=== PATIENT | female | born 1960 | race Caucasian/White ===

== ENCOUNTER 2021-06-26 08:56 | Day surgery (SDC) | payer MEDICARE, BC ==
--- NOTE | 2021-06-26 08:25 | HP ---
DATE OF SURGERY: 06/26/2021 HISTORY OF PRESENT ILLNESS: The patient is a 61-year-old with history of polyps. Last colonoscopy five years or so ago. She is in need of follow up screening colonoscopy. No bloody stools. No change in bowel movements. No pain. Family history negative for colon cancer, negative for stomach cancer. She has some nausea and reflux. Given her increased reflux recently she is in need of follow up upper endoscopy as well. PAST MEDICAL HISTORY: Chronic lung disease followed by Dr. Jules Calero. Severe allergic asthma per the patient. PAST SURGICAL HISTORY: Three sections. Tonsillectomy. Neck surgery in the past. MEDICATIONS: Dupixent. ALLERGIES: MORPHINE. LATEX. FAMILY HISTORY: Lung cancer. Thyroid problems. Hypertension. Heart disease. Negative for colon cancer. Negative for stomach cancer. SOCIAL HISTORY: No smoking or alcohol abuse currently. REVIEW OF SYSTEMS: Fourteen systems reviewed. No chest pain or palpitations. Other systems negative or noncontributory as above and per preadmission questionnaire. PHYSICAL EXAMINATION: GENERAL: No acute distress. HEENT: Sclerae nonicteric. NECK: No JVD. CHEST: Breath sounds symmetrical, slightly decreased bilaterally consistent with chronic lung disease otherwise no current audible wheezes. CVS: Regular rate and rhythm. ABDOMEN: Soft, nontender. EXTREMITIES: Pertinent for left hand lesion of indeterminate behavior. NEURO: Alert, oriented, moving extremities symmetrically. RECTAL: Deferred timed to endoscopy exam. PSYCH: Appropriate mood and affect. IMPRESSION: 1) History of polyps, need follow up screening colonoscopy. 2) Increased reflux, need for upper endoscopy to evaluate for gastritis, esophagitis, peptic ulcer disease. PLAN: General risk of bleeding or infection, risk of bowel injury or perforation, risk of missed or nondiagnosis or incomplete exam possibly requiring barium swallow, barium enema, other studies or procedures. General risk of anesthesia or sedation, risk of bowel prep. Regarding her left hand enlarging lesion of indeterminate behavior, general risk of bleeding and infection, risk of aches, pains, burning or numbness, possibility if malignant with involved margins may require other procedures, She understands and agrees to the planned procedure, will proceed with EGD, colonoscopy as well as excisional biopsy of left hand lesion an outpatient.
[~2021-06-26 08:56] MED LIST: Lactated Ringers 1,000 ML IV ONE; XYLOCAINE 1% HCL 20 ML MDV ONE
[2021-06-26] MEDS ORDERED: CEFAZOLIN 2 GM-D5W BAG** 2 GM/50 ML ML IV ONE (10:14)
[2021-06-26] MEDS ORDERED: CEFAZOLIN 2 GM-D5W BAG** 2 GM/50 ML ML IV SCH (10:30)
[2021-06-26] MEDS ORDERED: Lactated Ringers 1,000 ML IV SCH (10:30)
[2021-06-26] MEDS ORDERED: DIPRIVAN 200 MG/20 ML IV ONE ×3 (11:18→11:48)
[2021-06-26] MEDS ORDERED: SUBLIMAZE 100 MCG/2 ML ONE (11:18)
[2021-06-26] MEDS ORDERED: Versed 2 MG/2 ML Injection ONE (11:18)
[2021-06-26 13:05] VITALS: BP 147/85; PULSE 65; O2SAT 98
--- NOTE | 2021-06-26 15:04 | OP ---
SURGERY DATE/TIME: 06/26/2021 1120 PREOPERATIVE DIAGNOSES: 1) Enlarging pigmented lesion indeterminate significance left hand. 2) Increased reflux, need for upper endoscopy to evaluate for gastritis, esophagitis or other etiology. 3) History of polyps, need for follow up screening colonoscopy. POSTOPERATIVE DIAGNOSES: 1) ASA Class II. 2) Minimal to mild gastritis. 3) Plus or minus very short segment early distal esophagitis versus normal variation of gastroesophageal junction. 4) Multiple colon polyps. 5) Few diverticula. 6) Fair bowel prep. 7) Colonoscopy withdrawal time 13 minutes. PROCEDURES: 1) Excisional biopsy left hand pigmented lesion indeterminate significance, path pending (approximately 1.5 cm with margin). 2) EGD with cold biopsy of antrum for Helicobacter pylori. 3) Cold biopsy distal esophagus to evaluate for early distal esophagitis versus normal variation of gastroesophageal junction. 4) Random cold biopsy mid esophagus to evaluate for eosinophilic esophagitis. 5) Colonoscopy to cecum with hot biopsy polypectomy removal small ascending colon polyp. 6) Hot biopsy polypectomy removal of two or three small early transverse colon polyps removed with hot biopsy forceps. 7) Hot snare polypectomy of a 3.5 mm nearly 4 mm polyp transverse colon removed with hot snare polypectomy. Good hemostasis noted. 8) Hot biopsy polypectomy sigmoid colon polyps one which was removed in piecemeal fashion. 9) Hot biopsy polypectomy small early rectal polyp versus hyperplastic lesion. SURGEON: Dr. Nicko Hines. ANESTHESIA: MAC. ESTIMATED BLOOD LOSS: Minimal. INDICATIONS: As noted above. Risks and benefits explained in detail and not limited to and consent obtained. DESCRIPTION OF PROCEDURE AND FINDINGS: The patient is taken to the operating room. MAC anesthesia introduced, prepped and draped in usual sterile fashion. After official time out and no disagreement with planned procedure, 1% lidocaine local was infiltrated around the hand lesion of indeterminate behavior and marking out spindle-shaped around the area ended up being approximately 1.5 cm with margins. Dissecting off the underlying subcutaneous tissue. The specimen is passed off for pathology. Good hemostasis noted with some pinpoint cautery. The wound was then closed in layers. The deep layers were closed with interrupted 3-0 Vicryl. Skin closed with interrupted 4-0 Prolene interrupted fashion. Sterile dressing applied. The patient tolerated the procedure well. Attention is then turned to upper endoscopy. After waiting for the endoscopy equipment to be available, bite block positioned. Video gastroscope easily passed down the esophagus through the patent pylorus to the third portion of the duodenum. Third, second, first portion of duodenum grossly unremarkable. Scope pulled back into the stomach. It did have some little scattered petechial hemorrhages with some minimal to mild gastritis. No evidence of any ulcers or masses. Cold biopsy taken. On retroflex the gastroesophageal junction snug against the scope. No signs of any significant hiatal hernia on endoscopic view. The scope pulled back gastroesophageal junction noted to be about 40 cm. There was just a little bit of inflammation in the gastroesophageal junction whether this was just normal variation versus early distal esophagitis cold biopsy taken to evaluate for further evaluation. Good hemostasis noted. The remainder of the esophagus no signs of any obvious mucosal lesions. Some random cold biopsies were made in the mid esophagus to evaluate for other etiology of her symptoms. Good hemostasis noted. The scope is withdrawn. Examination was then turned to the colonoscopy. Digital rectal exam did not reveal any rectal masses. Video colonoscope inserted and passed up through the tortuous sigmoid, descending, transverse and ascending colon around to the cecum this did have some minimal internal hemorrhoids. The scope was passed around with external pressure to the cecum. Appendiceal orifice and valve well visualized and photo documented. Prep overall was fair. A little bit of liquidy semisolid stool suction irrigated as clear as possible but slightly limited the exam for very small lesions. The scope is slowly and carefully withdrawn over the next 13 minutes. Small polyp was removed with hot biopsy forceps with brief bursts of cautery in the ascending colon. Scope pulled back around the transverse colon. Two to three small early polyps removed with hot biopsy forceps with brief bursts of cautery. Good hemostasis noted. There was a little bit bigger one removed with hot snare polypectomy that was about 3.5 to 4 mm in size removed with hot snare polypectomy and brief bursts of cautery and appeared to be removed in total. The scope carefully pulled back to sigmoid colon. There were small polyps removed with hot biopsy polypectomy with brief bursts of cautery. Good hemostasis noted. The scope then pulled back in the rectum. Small early polyp versus hyperplastic lesion removed with hot biopsy forceps with brief bursts of cautery. Good hemostasis noted. The patient tolerated the procedure well. There were no immediate complications. Likely given the multiple polyps, will see if the path ends up being benign. Likely would recommend considering two year follow up colonoscopy given multiple polyps. The patient tolerated the procedure well. There were no immediate complications. She did have three tiny diverticula. There was no family out in the waiting area when I finished the case.
== END 2021-06-26 13:10 | disposition home or self-care (01) ==
LOC: SDC 08:56 → EDSTATUS 14:02
PROVIDERS: ATTEND Surgery
DX: Z12.11 Encounter for screening for malignant neoplasm of colon (principal); Z09 Encounter for follow-up examination after completed treatment for conditions other than malignant neoplasm; Z86.010 Personal history of colon polyps; R29.2 Abnormal reflex; K29.70 Gastritis, unspecified, without bleeding; K20.90 Esophagitis, unspecified without bleeding; K57.90 Diverticulosis of intestine, part unspecified, without perforation or abscess without bleeding; K64.8 Other hemorrhoids; D22.62 Melanocytic nevi of left upper limb, including shoulder; D12.2 Benign neoplasm of ascending colon; D12.5 Benign neoplasm of sigmoid colon; D12.3 Benign neoplasm of transverse colon; K62.1 Rectal polyp
CPT/HCPCS: 93005; J0690; J2250; J2704; J3010